=== PATIENT | male | born 1945 | race Caucasian/White ===

== ENCOUNTER 2016-07-06 08:49 | Emergency (ER) | payer BC, OTHER ==
[~2016-07-06] VITALS: Ht 170.2 cm; Wt 91.0 kg
[2016-07-06 08:55] VITALS: BP 155/89; PULSE 101; RESP 12; TEMP 98.2; O2SAT 95
[2016-07-06] MEDS ORDERED: ASPI1TAB69 PO (09:15)
[2016-07-06] MEDS ORDERED: VALS1TAB65 PO (09:15)
[2016-07-06] MEDS ORDERED: HYDR25TA5 PO (09:15)
[2016-07-06] MEDS ORDERED: ALLO300T2 PO (09:15)
[2016-07-06 09:29] VITALS: O2SAT 97
[2016-07-06] MEDS ORDERED: FAMOTIDINE 20 MG/2 ML VIAL IV PUSH ONE (09:30)
[2016-07-06] MEDS ORDERED: methylPREDNISolone SOD SUCC 125 MG/2 ML VIAL IVP ONE (09:30)
[2016-07-06] MEDS ORDERED: diphenhydrAMINE HCL 50 MG/ML VIAL IVP ONE (09:30)
[2016-07-06] MEDS ORDERED: SODIUM CHLORIDE 0.9% FLUSH 10 ML FLUSH IV FLUSH PRN (09:30)
--- NOTE | 2016-07-06 09:31 | PD ---
HPI Chief Complaint: Allergic/Adverse Reaction Time Seen by Provider: 09:27 Travel History International Travel<30 days: No Contact w/Intl Traveler<30days: No Traveled to known affect area: No History of Present Illness HPI Patient presents with complaints of hives on his arms abdomen and legs. Denies any known allergies. States he ate at [employer] last night. States he had sharp chicken and steak as well as Rice. Reports he noticed some lip swelling this morning as well as pruritic hives. Denies any shortness of breath. Denies any new medications. He does take valsartan. PFSH Past Medical History Cardiovascular Problems: Yes High Cholesterol: Yes Diminished Hearing: No GERD: Yes Hypertension: Yes Medical other: Yes Tetanus Vaccination: > 5 Years Influenza Vaccination: No Past Surgical History Surgical History: No Previous Surgery Social History Alcohol Use: Yes (1 BEER DAILY) Tobacco Use: No Substance Use: No Allergies-Medications (Allergen,Severity, Reaction): Coded Allergies: No Known Allergies (Unverified , 07/06/16) Reported Meds & Prescriptions Reported Meds & Active Scripts Active Reported Hydrochlorothiazide 25 Mg Tab 25 Mg PO DAILY Allopurinol 300 Mg Tab 0.5 Tab PO DAILY Valsartan 160 Mg Tab 160 Mg PO DAILY Aspirin 81 Mg Tabdr 81 Mg PO DAILY Review of Systems General / Constitutional: No: Fever Eyes: No: Visual changes HENT: No: Headaches Cardiovascular: No: Chest Pain or Discomfort Respiratory: No: Shortness of Breath Gastrointestinal: No: Abdominal Pain Genitourinary: No: Dysuria Musculoskeletal: No: Pain Skin: Positive Itching, Positive Hives, No Rash Neurologic: No: Weakness Psychiatric: No: Depression Endocrine: No: Polydipsia Hematologic/Lymphatic: No: Easy Bruising Physical Exam Narrative GENERAL: Well-nourished, well-developed patient. SKIN: Warm and dry. HEAD: Normocephalic. EYES: No scleral icterus. No injection or drainage. NECK: Supple, trachea midline. No JVD or lymphadenopathy. CARDIOVASCULAR: Regular rate and rhythm without murmurs, gallops, or rubs. RESPIRATORY: Breath sounds equal bilaterally. No accessory muscle use. GASTROINTESTINAL: Abdomen soft, non-tender, nondistended. MUSCULOSKELETAL: No cyanosis, or edema. BACK: Nontender without obvious deformity. No CVA tenderness. Mild left lower lip swelling with hives noted on his extremities and anterior abdomen Data Data Last Documented VS Vital Signs Date Time Temp Pulse Resp B/P Pulse Ox O2 Delivery O2 Flow Rate FiO2 07/06/16 09:29 97 Room Air 07/06/16 09:12 92 07/06/16 08:55 98.2 12 155/89 Orders Ecg Monitoring (07/06/16 09:27) Iv Access Insert/Monitor (07/06/16 09:27) Oximetry (07/06/16 09:27) Diphenhydramine Inj (Benadryl Inj) (07/06/16 09:30) Methylprednisolone So Succ Inj (Solumedr (07/06/16 09:30) Famotidine Inj (Pepcid Inj) (07/06/16 09:30) Sodium Chloride 0.9% Flush (Ns Flush) (07/06/16 09:30) MDM Medical Decision Making Medical Screen Exam Complete: Yes Emergency Medical Condition: Yes Differential Diagnosis Hives, drug reaction, food allergy Narrative Course Assessment and plan discussed with patient at bedside. Patient received IV Benadryl SoluMedrol and famotidine with improvement of his symptoms. Diagnosis Primary Impression: Allergic reaction Qualified Code: T78.40XA - Allergic reaction, initial encounter Patient Instructions: General Instructions Additional Instructions: Encouraged to continue Benadryl as needed, follow-up with PCP Med/Other Pt SpecificInfo: Prescription(s) given Scripts Prednisone (21) 5 mg tab Dose Pack 5 Mg Dspk5 Mg PO DIRECTED #1 DSPK Ref 0 Prov:Aristides Juarez MD 07/06/16 Disposition: 01 DISCHARGE HOME Condition: Good Aristides Juarez MD Jul 06, 2016 09:31
[2016-07-06] MEDS ORDERED: PRED5PAK PO (10:13)
[2016-07-06 10:17] VITALS: BP 132/72; PULSE 83; RESP 16; O2SAT 97
== END 2016-07-06 10:28 | disposition home or self-care (01) ==
LOC: PHED 08:49
DX: T78.40XA Allergy, unspecified, initial encounter (principal); E78.00 Pure hypercholesterolemia, unspecified; I10 Essential (primary) hypertension; K21.9 Gastro-esophageal reflux disease without esophagitis
CPT/HCPCS: 96374; 96375; 99283; J1200; J2930